=== PATIENT | male | born 1980 | race Caucasian/White ===

== ENCOUNTER → 2024-01-29 | Outpatient (CLI) | payer OTHER ==
[~2024-01-29] MED LIST: PROHANCE 279.3MG/ML 15ML VIAL ONE; PROHANCE 279.3MG/ML 5ML VIAL ONE
== END ==
LOC: M PLAIMG 08:26
PROVIDERS: ATTEND Student in an Organized Health Care Education/Training Program
DX: M51.36 Other intervertebral disc degeneration, lumbar region (principal); M62.81 Muscle weakness (generalized)
CPT/HCPCS: 72158; A9576